=== PATIENT | female | born 1980 | race Caucasian/White ===

== ENCOUNTER 2018-02-12 19:07 | Emergency (ER) | payer OTHER, MEDICAID ==
[~2018-02-12] VITALS: Ht 175.3 cm; Wt 119.3 kg
--- NOTE | 2018-02-13 08:09 | EKG ---
[facility] [address] [facility] [place] [address] Signed Normal sinus rhythm Possible Left atrial enlargement Borderline ECG No previous ECGs available Confirmed by SONIA PEMBERTON MD ([id number]) on 02/13/2018 8:08:40 AM Electronically Signed By: SONIA PEMBERTON MD 02/13/18808 PATIENT NAME: SHIRIN ANTUNEZ Electrocardiogram DATE OF : 80 PHYSICIAN: SONIA PEMBERTON MD REPORT #: [id number] REPORT IS CONFIDENTIAL AND NOT TO BE RELEASED WITHOUT AUTHORIZATION
== END 2018-02-12 22:12 | disposition home or self-care (01) ==
LOC: ED 19:07
DX: M94.0 Chondrocostal junction syndrome [Tietze] (principal)
CPT/HCPCS: 71045; 80053; 84484; 85025; 85379; 85610; 85730; 93005; 93010; 99285

== ENCOUNTER 2021-12-23 05:45 | Day surgery (SDC) | payer OTHER ==
[~2021-12-23] VITALS: Ht 175.3 cm; Wt 118.8 kg
--- NOTE | 2021-12-24 08:11 | OR ---
[facility] [address] [place], [place] [address] Signed DATE OF OPERATION: 12/23/2021 SURGEON: Breanna Rousseau MD PREOPERATIVE DIAGNOSES: 1. Diarrhea. 2. Guaiac-positive stool. 3. Anemia. 4. Paternal grandmother with colon cancer in her late 40s. 5. Paternal grandfather with colon cancer in his late 60s. POSTOPERATIVE DIAGNOSES: 1. Unremarkable upper endoscopy. 2. Unremarkable lower endoscopy. PROCEDURES: 1. EGD with CLOtest and biopsies of the duodenum and antrum. 2. Colonoscopy with multiple random cold biopsies. ESTIMATED BLOOD LOSS: None. INDICATIONS: Julieth is a 41-year-old female asked to see me for both upper and lower endoscopy. She has been under a tremendous amount of stress and was having diarrhea. She just finished up training for her [employer] and is looking for work. She has been given Bentyl and that seemed to help a little bit. The stool studies have been all negative except for the Hemoccult was positive. She told me she does not see any blood in the stool. However, the blood work did show some new onset anemia. She talked about a full hysterectomy back in her 30s. She has had no vaginal bleeding. She cannot see any blood in the stool. No specific upper GI complaints. We know her paternal grandmother had colon cancer in her late 40s. The paternal grandfather had colon cancer in his late 60s. There is no inflammatory bowel disease in the family. She came with her friend who happens to be one of our retired registered nurses from our [facility]. I gave Julieth a pamphlet on both upper and lower endoscopy. We reviewed the nature of the two tests. There is risk including, but not limited to gas bloating, crampy abdominal pain, bleeding, perforation requiring surgery, and missed diagnosis. We also discussed the need for IV conscious sedation. She had expressed understanding and wished to proceed. Electronically Signed By: BREANNA ROUSSEAU MD 12/24/21 0811 PATIENT NAME: JULIETH ANTUNEZ OPERATIVE REPORT DATE OF : 80 REPORT #: [id number] PHYSICIAN: BREANNA ROUSSEAU MD PCP: KINSEY MACDONALD REPORT IS CONFIDENTIAL AND NOT TO BE RELEASED WITHOUT AUTHORIZATION [facility] [address] [place], [place] [address] Signed PROCEDURE NOTE: Julieth was taken into our endoscopy suite and placed in the supine semi-recumbent position. A bite block was utilized for the case. She was given a total of 10 mg of Versed and 200 mcg of fentanyl to cover both cases. There was just enough that we could spend any time trying to get into her terminal ileum. In fact, we had initially placed a call to our anesthesia provider but then canceled that once we made it to the cecum. We had introduced the adult gastroscope into her esophagus and out into the third portion of the duodenal without difficulty. The duodenum and pyloric channel were unremarkable. We took biopsies of the duodenum due to the history of diarrhea. We took an additional biopsy of the antrum for CLOtest as well as pathologic review. There were no inflammatory changes and no ulcerations in the pyloric bulb or the stomach itself. Upon retroflexion of the scope, there was no evidence of any hiatal hernia. The scope was withdrawn up through the area of the GE junction, which was compliant without stricture. Her Z-line remains intact. There was no Dupont's mucosa, no distal esophagitis. The middle and upper esophagus were unremarkable. After this, the gas was suctioned out and the gastroscope removed. Julieth tolerated her upper endoscopy quite well. Julieth was then rotated into the left lateral decubitus position. She was maintained on IV sedation with Versed and fentanyl. A digital rectal exam was performed and this was unremarkable. She has good sphincter tone. There were no external hemorrhoids. The adult colonoscope had been introduced and we had to give some additional sedation along with abdominal compression. We had initially called our anesthesia provider, but we were just able to make it into the cecum, although she was a little uncomfortable with that. There was not enough sedation to try to get into the terminal ileum. Fortunately, her prep was good. We could easily see the appendiceal orifice and the ileocecal valve. The scope was then slowly withdrawn. We took pictures throughout for photodocumentation. We took multiple random cold biopsies throughout the colon and rectum due to the history of diarrhea. There was no diverticulosis. No polyps. Upon retroflexion of the scope, there was really no evidence of any significant internal hemorrhoid tissue. After this, the gas was suctioned out and the colonoscope removed. Julieth tolerated the procedure quite well. RECOMMENDATIONS: I will see Julieth back in my office in 7 to 14 days to review her results. Breanna Rousseau MD Electronically Signed By: BREANNA ROUSSEAU MD 12/24/21 0811 PATIENT NAME: JULIETH ANTUNEZ OPERATIVE REPORT DATE OF : 80 REPORT #: [id number] PHYSICIAN: BREANNA ROUSSEAU MD PCP: KINSEY MACDONALD REPORT IS CONFIDENTIAL AND NOT TO BE RELEASED WITHOUT AUTHORIZATION [facility] [address] [address] Signed ALB/MODL /[id number] cc: JOSE Leblanc MD Copies: BREANNA ROUSSEAU MD ~ Electronically Signed By: BREANNA ROUSSEAU MD 12/24/21 08 PATIENT NAME: JULIETH ANTUNEZ OPERATIVE REPORT DATE OF : 80 REPORT #: [id number] PHYSICIAN: BREANNA ROUSSEAU MD PCP: KINSEY MACDONALD REPORT IS CONFIDENTIAL AND NOT TO BE RELEASED WITHOUT AUTHORIZATION
--- NOTE | 2021-12-24 15:41 | PATH ---
[facility] [address] [place], [place] [address] Signed SPECIMEN(S): A DUODENAL BIOPSY SPECIMEN(S): B ANTRUM/PYLORUS BIOPSY SPECIMEN(S): C CECUM BIOPSY SPECIMEN(S): D ASCENDING/RIGHT COLON BIOPSY SPECIMEN(S): E TRANSVERSE COLON BIOPSY SPECIMEN(S): F DESCENDING/LEFT COLON BIOPSY SPECIMEN(S): G SIGMOID COLON BIOPSY SPECIMEN(S): H RECTAL BIOPSY SPECIMEN SOURCE: A. DUODENAL BIOPSY B. ANTRUM/PYLORUS BIOPSY C. CECUM BIOPSY D. ASCENDING/RIGHT COLON BIOPSY E. TRANSVERSE COLON BIOPSY F. DESCENDING/LEFT COLON BIOPSY G. SIGMOID COLON BIOPSY H. RECTAL BIOPSY CLINICAL HISTORY: Diarrhea, Heme-positive stool, anemia, family history of colon cancer. FINAL PATHOLOGIC DIAGNOSIS: A. Duodenum, biopsy: - Duodenal mucosa with no histopathologic abnormality. - Negative for increased intraepithelial lymphocytes or villous blunting. - Negative for dysplasia or malignancy. B. Stomach, antrum/pylorus, biopsy: - Antral mucosa with chronic, inactive gastritis. - Negative for Helicobacter organisms on HE stain. - Negative for dysplasia or malignancy. C. Colon, cecum, biopsy: - Colonic mucosa with no histopathologic abnormality. - Negative for active, chronic, or microscopic colitis. - Negative for dysplasia or malignancy. D. Colon, ascending/right, biopsy: - Colonic mucosa with no histopathologic abnormality. - Negative for active, chronic, or microscopic colitis. - Negative for dysplasia or malignancy. E. Colon, transverse, biopsy: - Colonic mucosa with no histopathologic abnormality. PATIENT NAME: SHIRIN ANTUNEZ PATHOLOGY DATE OF : 80 REPORT #: [id number] PHYSICIAN: TEO CONNELLY PCP: KINSEY MACDONALD REPORT IS CONFIDENTIAL AND NOT TO BE RELEASED WITHOUT AUTHORIZATION [facility] [address] [place], [place] [address] Signed - Negative for active, chronic, or microscopic colitis. - Negative for dysplasia or malignancy. F. Colon, descending/left, biopsy: - Colonic mucosa with no histopathologic abnormality. - Negative for active, chronic, or microscopic colitis. - Negative for dysplasia or malignancy. G. Colon, sigmoid, biopsy: - Colonic mucosa with no histopathologic abnormality. - Negative for active, chronic, or microscopic colitis. - Negative for dysplasia or malignancy. H. Rectum, biopsy: - Colonic mucosa with no histopathologic abnormality. - Negative for active, chronic, or microscopic colitis. - Negative for dysplasia or malignancy. NAL:cml:[id number] MICROSCOPIC EXAMINATION: Histologic sections of all submitted blocks are examined by light microscopy. These findings, together with the gross examination, support the pathologic diagnosis. GROSS DESCRIPTION: Eight specimens are received in eight containers, labeled "EB." A. The specimen, labeled "EB, 1," and designated on the requisition "duodenal," is received in formalin and consists of one short soft tissue fragment that measures 0.3 cm in greatest dimension. The specimen is entirely submitted in cassette (A1). B. The specimen, labeled "EB, 2," and designated on the requisition "antrum/pylorus," is received in formalin and consists of one short soft tissue fragment that measures 0.4 cm in greatest dimension. The specimen is entirely submitted in cassette (B1). C. The specimen, labeled "EB, 3," and designated on the requisition "cecum," is received in formalin and consists of one short soft tissue fragment that measures 0.4 cm in greatest dimension. The specimen is entirely submitted in cassette (C1). D. The specimen, labeled "EB, 4," and designated on the requisition "ascending/right colon," is received in formalin and consists of one short soft tissue fragment that measures 0.3 cm in greatest dimension. The specimen is entirely submitted in cassette (D1). E. The specimen, labeled "EB, 5," and designated on the requisition PATIENT NAME: SHIRIN ANTUNEZ PATHOLOGY DATE OF : 80 REPORT #: [id number] PHYSICIAN: TEO CONNELLY PCP: KINSEY MACDONALD REPORT IS CONFIDENTIAL AND NOT TO BE RELEASED WITHOUT AUTHORIZATION [facility] [address] [place], [place] [address] Signed "transverse colon," is received in formalin and consists of one short soft tissue fragment that measures 0.5 cm in greatest dimension. The specimen is entirely submitted in cassette (E1). F. The specimen, labeled "EB, 6," and designated on the requisition "descending/left colon," is received in formalin and consists of one short soft tissue fragment that measures 0.3 cm in greatest dimension. The specimen is entirely submitted in cassette (F1). G. The specimen, labeled "EB, 7," and designated on the requisition "sigmoid colon," is received in formalin and consists of one short soft tissue fragment that measures 0.3 cm in greatest dimension. The specimen is entirely submitted in cassette (G1). H. The specimen, labeled "EB, 8," and designated on the requisition "rectal biopsy," is received in formalin and consists of one short soft tissue fragment that measures 0.3 cm in greatest dimension. The specimen is entirely submitted in cassette (H1). AT (under the direct supervision of a pathologist) The Gross Description was prepared using a voice recognition system. The report was reviewed for accuracy; however, sound-alike word errors, addition and/or deletions may occur. If there is any question about this report, please contact Client Services. PERFORMING LABORATORY: The technical component was performed by [facility] [address] (CLIA# [id number]). [place] [address] (CLIA# [id number]). Diagnostician: Valerie Berman MD Pathologist Electronically Signed 12/24/2021 Copies: ~ PATIENT NAME: SHIRIN ANTUNEZ PATHOLOGY DATE OF : 80 REPORT #: [id number] PHYSICIAN: TEO CONNELLY PCP: KINSEY MACDONALD REPORT IS CONFIDENTIAL AND NOT TO BE RELEASED WITHOUT AUTHORIZATION
== END 2021-12-23 10:05 | disposition home or self-care (01) ==
LOC: OPS 05:45 → DS 05:45 → OPS 07:30 → DS 10:30 → OPS 10:30
PROVIDERS: ATTEND Colon & Rectal Surgery
PROC: 0DBK8ZX Excision of Ascending Colon, Via Natural or Artificial Opening Endoscopic, Diagnostic (ICD-10-PCS; 2021-12-23)
PROC: 0DBL8ZX Excision of Transverse Colon, Via Natural or Artificial Opening Endoscopic, Diagnostic (ICD-10-PCS; 2021-12-23)
PROC: 0DBN8ZX Excision of Sigmoid Colon, Via Natural or Artificial Opening Endoscopic, Diagnostic (ICD-10-PCS; 2021-12-23)
PROC: 0DBP8ZX Excision of Rectum, Via Natural or Artificial Opening Endoscopic, Diagnostic (ICD-10-PCS; 2021-12-23)
PROC: 0DBM8ZX Excision of Descending Colon, Via Natural or Artificial Opening Endoscopic, Diagnostic (ICD-10-PCS; 2021-12-23)
PROC: 0DBH8ZX Excision of Cecum, Via Natural or Artificial Opening Endoscopic, Diagnostic (ICD-10-PCS; 2021-12-23)
PROC: 0DB98ZX Excision of Duodenum, Via Natural or Artificial Opening Endoscopic, Diagnostic (ICD-10-PCS; principal; 2021-12-23 07:30)
PROC: 0DB78ZX Excision of Stomach, Pylorus, Via Natural or Artificial Opening Endoscopic, Diagnostic (ICD-10-PCS; 2021-12-23 07:30)
DX: K29.50 Unspecified chronic gastritis without bleeding (principal); R19.7 Diarrhea, unspecified; R19.5 Other fecal abnormalities; D64.9 Anemia, unspecified; E66.9 Obesity, unspecified; Z68.38 Body mass index [BMI] 38.0-38.9, adult; Z80.0 Family history of malignant neoplasm of digestive organs; Z20.822 Contact with and (suspected) exposure to COVID-19
CPT/HCPCS: 36415; 87077; 87502; 99153; C9803; G0500; J2250; J3010; U0003